=== PATIENT | female | born 1955 | race Two or more races ===

== ENCOUNTER → 2019-04-25 | Outpatient (CLI) | payer MEDICARE | LOC: RAD 14:20 | PROVIDERS: ATTEND Family Medicine | DX: I80.01 Phlebitis and thrombophlebitis of superficial vessels of right lower extremity (principal) | CPT/HCPCS: 93971 ==

== ENCOUNTER → 2022-12-09 | Outpatient (CLI) | payer MEDICARE ==
[~2022-12-09] MED LIST: NAPROXEN250 MG PO
== END ==
LOC: RAD 13:29
PROVIDERS: ATTEND Family Medicine
DX: I80.01 Phlebitis and thrombophlebitis of superficial vessels of right lower extremity (principal)
CPT/HCPCS: 93971

== ENCOUNTER → 2024-10-23 | Outpatient (REF) | payer MEDICARE | LOC: RAD 10:25 | PROVIDERS: ATTEND Family Medicine | DX: R60.0 Localized edema (principal) | CPT/HCPCS: 93970 ==

== ENCOUNTER 2025-02-12 21:35 | Emergency (ER) | payer MEDICARE ==
[~2025-02-12] VITALS: Ht 162.6 cm; Wt 50.8 kg
[2025-02-12 23:30] LABS: BASOPHILS % 0.8 % (0.0-1.0); EOSINOPHILS % 9.1 % (0.0-6.0); LYMPHOCYTES % 38.4 % (18.0-39.1); MONOCYTES % 15.9 % (4.4-11.3); NEUTROPHILS % 35.5 % (38.7-80.0); RED CELL DISTRIBUTION WIDTH 15.6 % (11.7-14.4)
[2025-02-12 23:53] LABS: EST GLOMERULAR FILTRATION RATE 94 ML/MIN (>=60)
[2025-02-13 00:27] VITALS: BP 148/72; PULSE 78; RESP 16
[2025-02-13 00:38] VITALS: PULSE 76; RESP 16; TEMP 98.6; O2SAT 100
== END 2025-02-13 00:34 | disposition home or self-care (01) ==
LOC: ER 21:41
DX: M79.89 Other specified soft tissue disorders (principal); R60.9 Edema, unspecified; I10 Essential (primary) hypertension; E78.5 Hyperlipidemia, unspecified
CPT/HCPCS: 36415; 71045; 80053; 82550; 83690; 83880; 84484; 85025; 93005; 99284; J2543

== ENCOUNTER → 2025-02-12 | Emergency (ER) | payer MEDICARE | END | disposition left against medical advice (07) | LOC: ER 22:30 | DX: M79.89 Other specified soft tissue disorders (principal) ==